=== PATIENT | male | born 1970 | race Hispanic/Latino ===

== ENCOUNTER 2018-08-21 17:36 | Inpatient (IN) ==
[2018-08-21] MEDS ORDERED: TYLENOL PO ONE (19:32)
[2018-08-21] MEDS ORDERED: ZOFRAN ODT PO ONE (19:32)
[2018-08-21 19:33] LABS: BASO# 0.06 X1000 (0.0-0.2); BASO% 0.4 % (0.0-0.8); EOS# 0.75 X1000 (0.0-0.7); EOS% 5.5 % (0.0-10.0); HEMOGLOBIN 11.2 g/dL (14.0-18.0); IMM GRAN# 0.08 X1000 (0.0-0.04); IMM GRAN% 0.6 % (0.0-0.5); LYMPH# 2.65 X1000 (1.2-3.4); LYMPH% 19.6 % (20.5-51.1); MCH 27.2 PG (27-31); MONO# 1.35 X1000 (0.11-0.59); NEUT# 8.66 X1000 (1.4-6.5); NEUT% 63.9 % (42.2-75.2); PLT 448 X1000 (130-400); RBC 4.12 XMIL (4.7-6.1); RDW 13.3 % (11.5-14.5); WBC 13.55 X1000 (4.8-10.8)
[2018-08-21 19:57] LABS: URINE SOURCE CLEAN CATCH
[2018-08-21 20:00] LABS: BILIRUBIN URINE NEGATIVE (NEGATIVE); BLOOD URINE SMALL (NEGATIVE); COLOR YELLOW; GLUCOSE URINE NEGATIVE (NEGATIVE); KETONE URINE NEGATIVE (NEGATIVE); LEUKOCYTES URINE NEGATIVE (NEGATIVE); NITRITE URINE NEGATIVE (NEGATIVE); PH URINE 5.5; PROTEIN URINE NEGATIVE (NEGATIVE); SP GRAVITY URINE 1.012; TURBIDITY URINE CLEAR (CLEAR); UROBILINOGEN URINE NORMAL (NORMAL)
[2018-08-21 20:01] LABS: UR EPITHELIAL CELLS <10 /HPF (<10); URINE BACTERIA NEGATIVE /HPF; URINE RBC <10 /HPF (<10); URINE WBC <10 /HPF (<10)
[2018-08-21 20:09] LABS: AGAP 11; ALB/GLOB RATIO 0.9; ALBUMIN 3.6 g/dL (3.5-5.0); ALKALINE PHOSPHATASE 94 U/L (32-122); BUN 11 mg/dL (8-22); CALCIUM 8.6 mg/dL (8.8-10.2); CHLORIDE 100 mmol/L (98-107); COSMO 274; CREATININE 0.8 mg/dL (0.7-1.2); ESTIMATED GFR > 60; GLUCOSE 139 mg/dL (70-104); GOT 19 U/L (10-34); GPT 14 U/L (10-44); POTASSIUM 3.6 mmol/L (3.5-5.1); SODIUM 136 mmol/L (136-145); TCO2 25 mmol/L (25-35); TOTAL BILIRUBIN 0.15 mg/dL (0.20-1.00); TOTAL PROTEIN 7.4 g/dL (6.3-8.3)
--- NOTE | 2018-08-21 21:05 | Diag Imaging Result Doc PS360 ---
EXAM: CT ABD/PELVIS W/IV CONT ONLY INDICATION: appendicitis, pyelo TECHNIQUE: This exam was performed using automated exposure control, adjustment of mA or kV according to patient size, and/or use of iterative reconstruction technique. COMPARISON: None. FINDINGS: There are numerous metastatic masses involving both lung bases. For reference, the largest visualized mass is in the lingula measuring up to 4.7 x 3.2 cm axially. A couple of the lower lobe masses are slightly cavitary. There are innumerable metastatic lesions throughout the liver including a large conglomerate mass in the left hepatic lobe that measures up to 14.0 x 8.5 cm axially. The gallbladder is unremarkable. The spleen, pancreas, and adrenal glands are unremarkable. There is irregular circumferential thickening involving the distal sigmoid colon that is highly consistent with neoplasm. This is assumed to be the primary mass. There is adjacent malignant mesenteric lymphadenopathy. Including a spiculated mesenteric mass adjacent to the affected segment of the colon measuring up to 3.6 x 3.5 cm axially. The primary colonic mass is significantly narrowing the lumen of the colon there is mild distention of the colon just proximal to the mass. There is inflammatory stranding in the pelvis adjacent to the mass. The urinary bladder is partially distended and is essentially unremarkable, otherwise. The colonic mass and the adjacent mesenteric implants in the pelvis are obstructing the distal right ureter. There is associated moderate right hydronephrosis. There are a few nonobstructing intrarenal stones on the left. The left kidney is unremarkable, otherwise. There are mild degenerative changes throughout the spine. At the superior endplate of the L4 vertebral body on the left, there is a focus of sclerosis. Although this could be degenerative sclerosis as it abuts the disc space, a metastatic lesion cannot be excluded. IMPRESSION: 1.Prominent circumferential mass with surrounding lymphadenopathy and adjacent mesenteric implants associated with the distal sigmoid colon. This is highly consistent with primary colon malignancy. 2.Obstruction of the distal right ureter by the colonic mass and adjacent mesenteric implants with associated moderate right hydronephrosis. 3.Extensive metastatic disease involving the liver and the lung bases. 4.Small focus of sclerosis involving the L4 vertebral body on the left. A bony metastatic lesion cannot be excluded. Electronically signed by Juan Carlos Meneses 08/21/2018 9:02 PM
[2018-08-21] MEDS: ZOFRAN IV PRN (23:17)
[2018-08-21] MEDS: MORPHINE IV PRN (23:17)
[2018-08-21] MEDS: NS 1,000 ML IV SCH (23:17)
--- NOTE | 2018-08-22 00:57 | HISTORY AND PHYSICAL ---
PRIMARY CARE PHYSICIAN: None. CHIEF COMPLAINT: Abdominal pain, constipation x3 months. HISTORY OF PRESENTING ILLNESS: A 47-year-old male without any significant past medical history presented to emergency department with a 3-month history of worsening constipation and abdominal pain. Patient states for the past week or so he was getting more pain and was not feeling well. The patient was evaluated the emergency department. He had imaging done which did show colon mass with metastasis. Due to his presenting symptoms, he will need admission for further management. At the time of my examination, patient denied any headache, fever, chills, chest pain, shortness of breath, hemoptysis, but complained of abdominal pain and constipation. PAST MEDICAL HISTORY: None. PAST SURGICAL HISTORY: None. ALLERGIES: Penicillin and ibuprofen. CURRENT MEDICATIONS: None. SOCIAL HISTORY: Twenty-five pack year history of smoking. Denies any history of alcohol or illicit drug use. FAMILY HISTORY: No history of coronary disease. REVIEW OF SYSTEMS: Fourteen point review of system as listed in HPI. Other systems negative. PHYSICAL EXAMINATION: GENERAL: Cooperative, friendly male. He is resting comfortably now. VITAL SIGNS: Temperature 98.0 degrees, pulse 96, respiration 18, blood pressure 133/87. HEENT: Atraumatic, normocephalic. Extraocular movements intact. PERRLA. NECK: Supple. CHEST: Clear to auscultation. CARDIOVASCULAR: Regular rate and rhythm. ABDOMEN: Soft, positive bowel sounds. EXTREMITIES: No edema. NEUROLOGIC: He is awake, alert, oriented x3. GENITOURINARY: No bladder distention. SKIN: Warm. LABORATORIES AND STUDIES: WBCs 13.55, hemoglobin 11.2, hematocrit 35.0, platelets 448. Sodium 136, potassium 3.6, chloride 100, CO2 is 25, BUN is 11, creatinine 0.8, glucose is 139. CT of the abdomen and pelvis shows prominent circumferential mass with surrounding lymphadenopathy and adjacent mesenteric implants highly consistent with primary colon malignancy. Also obstruction of the right distal ureter by colonic colon mass and adjacent mesenteric implants associated with moderate right hydronephrosis. ASSESSMENT: This is a 47-year-old male without any significant past medical history who presented to emergency department with a 3-month history of worsening constipation and abdominal pain. The patient was evaluated the emergency department. He had a CAT scan done which did show a colon mass with metastasis. Due to his presenting findings, he will need admission for further management. 1. Colon mass with metastasis. 2. Moderate right hydronephrosis. 3. Ongoing tobacco abuse. PLAN: 1. We will admit patient to medical floor with telemetry. 2. Continue with supportive treatment with pain control, antiemetics and gentle hydration. 3. We will consult Oncology and General Surgery. 4. We will consult Urology regarding right hydronephrosis. 5. I counseled patient on smoking cessation. 6. We will put patient on DVT prophylaxis with SCD. 7. Continue to follow, and reassess and make further recommendation based on patient's clinical course. cc: Tay Feliciano MD
--- NOTE | 2018-08-22 01:26 | PROVIDER DOCUMENTATION ---
This chart was entered by Doris Meneses Scribe, acting as scribe for Niki Briscoe MD. HPI-Abdominal Pain/GI Problem - General Chief Complaint: Constipation Stated Complaint: FEVER/STOMACH PAIN Time Seen by Provider: 08/21/18 19:05 Source: patient Allergies/Adverse Reactions: Patient Allergies Allergy/AdvReac Type Severity Reaction Status Date / Time No Known Allergies Allergy Verified 08/21/18 18:25 Home Medications: Home Medication List Medication Instructions Recorded Confirmed Last Taken Type NK [No Home Medications] 08/21/18 08/21/18 Unknown History - History of Present Illness-ABD Nature of Presenting Problems: 47 yom c/o lower back pain, lower abd pain, insomnia, no appetite, fever, nausea and vomiting since for 3 days. pt states he has been constipated on and off and has a hemorrhoid. pt states whenever he can use restroom blood comes first then BM. pt went to [place] to take care of some business, had blood work done there and decided to come back here to the dr. pt went to pcp yesterday and could not get an appt till thursday but pt did not want to wait so came to er. pt has been using preparation h, advil and aleve w/no relief. pt is a smoker, does not use alcohol or rec drugs. Abdominal Pain Onset Location: reports: other (starts in lower back) Pain Radiation: reports: RLQ Quality of Pain: reports: aching Severity in ED: reports: mild Onset/Duration: reports: 3 days ago Timing: reports: still present Review of Systems - Adult - REVIEW OF SYSTEMS - ADULT Constitutional: reports: see HPI, fever, fatique. denies: chills, night sweats Eyes: reports: no symptoms reported Ears, Nose, Mouth & Throat: reports: no symptoms reported Cardiovascular: reports: no symptoms reported Respiratory: reports: no symptoms reported Gastrointestinal: reports: see HPI, abdominal pain, constipation, nausea, poor appetite, rectal bleeding, vomiting. denies: hematemesis, diarrhea Genitourinary: reports: no symptoms reported Musculoskeletal: reports: no symptoms reported Integumentary: reports: no symptoms reported Neurological: reports: no symptoms reported Psychiatric: reports: no symptoms reported Endocrine: reports: no symptoms reported Hematologic/Lymphatic: reports: no symptoms reported Allergic/Immunologic: reports: no symptoms reported All Other Systems: Reviewed and Negative Past History - Adult - PAST MEDICAL HISTORY-ADULT Review of Records: reports: Old Records Reviewed, Nursing Assessment Review, Medications Reviewed, Social history reviewed & non-contributory. Major Childhood Illnesses: reports: denies history Cardiovascular: reports: denies history Respiratory: reports: denies history Gastrointestinal: reports: other (hemorrhoids, constipation) Obstetrical/Gynecological: reports: denies history Genitourinary: reports: denies history Musculoskeletal: reports: denies history Neurological: reports: denies history Endocrine/Immune: reports: denies history Other Conditions: reports: denies history - PRIOR SURGERIES/PROCEDURES Surgical/Procedure History: reports: none - IMMUNIZATION STATUS Childhood Immunizations: See Nurse Assessment Flu Vaccine: See Nurse Assessment - FAMILY HISTORY Family History: reviewed, not pertinent - SOCIAL HISTORY Smoking: cigarettes, less than 1 pack/day Substance Use: none/never Physical Exam-General - PHYSICAL EXAM-ADULT Initial Vital Signs Reviewed: Yes - CONSTITUTIONAL General Appearance: alert, mild distress, obese. negative: slow to respond, obtunded, combative - EYES Eyes: PERRL/EOMI - HEAD, EARS, NOSE, MOUTH & THROAT HENMT: normocephalic/atraumatic, moist mucous membranes, normal ENT inspection - NECK Neck: non-tender, full range of motion, supple, normal inspection - RESPIRATORY Respiratory: chest non-tender, lungs clear, normal breath sounds - CARDIOVASCULAR Cardiovascular: normal peripheral pulses, regular rate, rhythm - GASTROINTESTINAL (ABDOMEN) Abdominal Exam: normal bowel sounds, soft, tenderness (rlq tenderness). negative: non tender, abnormal bowel sounds, distended, guarding - GENITOURINARY Male Genitalia: deferred Rectal Exam: blood streaked stool, mass (large, protruding mass right above rectum.), tenderness. negative: normal exam, normal rectal tone, black stool - LYMPHATIC Lymphatic: no adenopathy - MUSCULOSKELETAL Back Exam: normal inspection, no vertebral tenderness, CVA tenderness. negative: no CVA tenderness, decreased range of motion, muscle spasm Extremity: normal range of motion, non-tender, normal inspection Peripheral Pulses: radial (R): 2+, radial (L): 2+ - SKIN Integumentary: normal color, normal turgor, warm/dry - NEUROLOGIC Neurologic: e d tech II-XII nml as tested, grossly normal, no motor/sensory deficits - PSYCHIATRIC Psych/Mental Status: normal mood/affect, normal thought content, normal thought process, oriented x 3 Progress - PLAN OF CARE/RESULTS Progress/Plan/Lab Results: Vital Signs - 8 hr 08/21/18 17:42 Temperature 98 F Pulse Rate 96 H Respiratory Rate 18 Blood Pressure 133/87 O2 Sat by Pulse Oximetry 98 Orders Category Date Time Status CT ABD/PELVIS W/IV CONT ONLY [CT] Stat Exams 08/21/18 19:31 Ordered CBC WITH DIFF [HEME] Stat Lab 08/21/18 19:15 Results CMP [COMPREHENSIVE METABOLIC PANEL] [CHEM] Stat Lab 08/21/18 19:15 Received OCCULT BLOOD SCREENING [STOOL] Stat Lab 08/21/18 19:28 Ordered URINALYSIS W/POSS RFLX CULT [URINALYSIS] Stat Lab 08/21/18 19:32 Uncollected Result Diagrams: 08/21/18 19:15 08/21/18 19:15 - CT/MRI 1 CT Study: Abdomen, Pelvis Impression: Abnormal (EXAM: CT ABD/PELVIS W/IV CONT ONLY INDICATION: appendicitis, pyelo TECHNIQUE: This exam was performed using automated exposure control, adjustment of mA or kV according to patient size, and/or use of iterative reconstruction technique. COMPARISON: None. FINDINGS: There are numerous metastatic masses involving both lung bases. For reference, the largest visualized mass is in the lingula measuring up to 4.7 x 3.2 cm axially. A couple of the lower lobe masses are slightly cavitary. There are innumerable metastatic lesions throughout the liver including a large conglomerate mass in the left hepatic lobe that measures up to 14.0 x 8.5 cm axially. The gallbladder is unremarkable. The spleen, pancreas, and adrenal glands are unremarkable. There is irregular circumferential thickening involving the distal sigmoid colon that is highly consistent with neoplasm. This is assumed to be the primary mass. There is adjacent malignant mesenteric lymphadenopathy. Including a spiculated mesenteric mass adjacent to the affected segment of the colon measuring up to 3.6 x 3.5 cm axially. The primary colonic mass is significantly narrowing the lumen of the colon there is mild distention of the colon just proximal to the mass. There is inflammatory stranding in the pelvis adjacent to the mass. The urinary bladder is partially distended and is essentially unremarkable, otherwise. The colonic mass and the adjacent mesenteric implants in the pelvis are obstructing the distal right ureter. There is associated moderate right hydronephrosis. There are a few nonobstructing intrarenal stones on the left. The left kidney is unremarkable, otherwise. There are mild degenerative changes throughout the spine. At the superior endplate of the L4 vertebral body on the left, there is a focus of sclerosis. Although this could be degenerative sclerosis as it abuts the disc space, a metastatic lesion cannot be excluded. IMPRESSION: 1.Prominent circumferential mass with surrounding lymphadenopathy and adjacent mesenteric implants associated with the distal sigmoid colon. This is highly consistent with primary colon malignancy. 2.Obstruction of the distal right ureter by the colonic mass and adjacent mesenteric implants with associated moderate right hydronephrosis. 3.Extensive metastatic disease involving the liver and the lung bases. 4.Small focus of sclerosis involving the L4 vertebral body on the left. A bony metastatic lesion cannot be excluded. Electronically signed by Juan Carlos Meneses 08/21/2018 9:02 PM) Comparison with other Films: no prior study Departure - Departure Date of Disposition Decision: 08/22/18 Time of Disposition Decision: 01:25 DIAGNOSIS: Metastasis from colon cancer Disposition: ADMITTED INPATIENT 09 Certified Medical Emergency: Emergent Condition: Stable - Critical Care Note This patient required my direct & personal management of CC.: No Attestation - Physician/ PARVIN Attestation Patient care was provided by Advanced Practice Provider:: No The physician spent face to face time with patient:: Yes Advanced Practice Provider documentation review:: Supervising physician onsite and consulted in the evaluation and care of this patient. The physician did have a face to face encounter with the patient. This chart was documented by the indicated scribe, (Doris Meneses Scribe) and accurately reflects the services I performed and decisions made by me, Niki Briscoe MD, as attested by the provider's signature.
[2018-08-22 07:12] LABS: BASO# 0.04 X1000 (0.0-0.2); BASO% 0.3 % (0.0-0.8); EOS# 0.73 X1000 (0.0-0.7); EOS% 5.6 % (0.0-10.0); HEMOGLOBIN 10.4 g/dL (14.0-18.0); IMM GRAN# 0.06 X1000 (0.0-0.04); IMM GRAN% 0.5 % (0.0-0.5); LYMPH# 3.24 X1000 (1.2-3.4); LYMPH% 24.9 % (20.5-51.1); MCH 26.9 PG (27-31); MCHC 31.5 g/dL (33-37); MCV 85.5 FL (81-99); MONO# 1.06 X1000 (0.11-0.59); MONO% 8.1 % (1.7-9.3); MPV 8.7 FL (7.4-10.4); NEUT% 60.6 % (42.2-75.2); PLT 440 X1000 (130-400); RBC 3.86 XMIL (4.7-6.1); RDW 13.2 % (11.5-14.5); WBC 13.03 X1000 (4.8-10.8)
[2018-08-22 07:51] LABS: AGAP 12; BUN 9 mg/dL (8-22); CALCIUM 8.1 mg/dL (8.8-10.2); CHLORIDE 102 mmol/L (98-107); COSMO 277; CREATININE 0.7 mg/dL (0.7-1.2); ESTIMATED GFR > 60; GLUCOSE 117 mg/dL (70-104); POTASSIUM 4.2 mmol/L (3.5-5.1); SODIUM 139 mmol/L (136-145); TCO2 25 mmol/L (25-35)
[2018-08-22] MEDS: NS 1,000 ML IV SCH ×2 (09:26→19:52)
[2018-08-22] MEDS: LACTULOSE PO SCH ×2 (12:37→19:52)
[2018-08-22] MEDS ORDERED: LOVENOX SUBQ ONE (13:04)
--- NOTE | 2018-08-22 13:27 | PROGRESS NOTE ---
DATE: 08/22/2018 INTERVAL HISTORY: Mr. Devries was admitted for abdominal pain and constipation, and was found to have a metastatic cancer involving bilateral lungs, liver and sigmoid colon. Since he has had a bowel movement small, currently he is denying any abdominal pain. I went to the bedside. I talked with the patient. The patient's young son is also bedside. The patient's lives in [place]. I explained to him about the bad nature of his cancer and I offered my empathy. I explained to him about the metastatic nature of the cancer as well as my willingness to help answer any questions currently. OBJECTIVE: Vitals: Temperature 98.2 degrees, pulse 76, respiratory rate 18, blood pressure 128/76, saturating 99% on room air. General: Does not appear in any acute distress. Oral cavity is moist. Lungs: Air entry bilaterally equal. No wheezes or crackles. Cardiovascular: S1, S2 normal. No murmur, rub or gallop. Abdomen: Obese, not tender. Extremities: No lower extremity edema. LABORATORIES: Suggestive of leukocytosis, normocytic anemia, thrombocytosis, normal electrolytes, elevated carcinoembryonic antigen. MICROBIOLOGY: Fecal occult blood test was positive. IMAGING: Abdomen and pelvis CT as mentioned above documented prominent mass with surrounding lymphadenopathy and adjacent mesenteric stranding associated with the distal sigmoid colon consistent with primary colon malignancy. There was also obstruction of distal ureter by colonic mass and adjacent mesenteric implants with associated moderate right hydronephrosis. Extensive metastatic disease involving liver and lung base. ASSESSMENT AND PLAN: 1. Suspected metastatic colon cancer involving sigmoid colon causing mild obstruction and constipation. I will appreciate Surgery recommendation about need for any surgical intervention. Also for possible sampling of his tumor. I will start him on lactulose to help him have bowel movements. Appreciate Oncology recommendation as he would likely require chemotherapy in the future very soon. 2. Right-sided hydronephrosis with colonic mass pressing on right ureter. Urology has been consulted. I will appreciate recommendation. His kidney function is currently normal, though. 3. Tobacco abuse. Patient was counseled about not using tobacco products anymore. He does not want nicotine patches. 4. Deep venous thrombosis prophylaxis. I will start him on enoxaparin to be held on the day of surgery. DISPOSITION: The patient remains inside the hospital for further management. Plan of care discussed with him. Surrogate decision maker is his who is in [place] right now. cc: Ayaz Arreola MD MTDD
--- NOTE | 2018-08-22 13:44 | GENERAL SURGERY CONSULTATION ---
DATE: 08/22/2018 CHIEF COMPLAINT: Is metastatic tumor. HISTORY: This 47-year-old gentleman who has been trying to immigrate to the [place] has noted an 8 to 9 month history of increasing constipation. Recently he has had some blood per rectum. He has had blood work in the past related to his immigration status but has never been told there has been any problem with it. He does have a past history of tuberculosis and has been treated for that in the [place]. No previous surgery. FAMILY HISTORY: His father from a heart attack. Was a heavy drinker. His mother had some kind of abdominal cancer he says. No cancer otherwise in his siblings. MEDICATIONS: He currently takes no medications. ALLERGIES: Penicillin and ibuprofen. SOCIAL HISTORY: He is a smoker. He denies alcohol use. As I said, he is in the process of immigrating to the [place]. REVIEW OF SYSTEMS: Pertinent for the constipation, hematochezia, 3-pound weight loss. Appetite satisfactory. No chest pain, shortness of breath. PHYSICAL EXAMINATION: Vital Signs: He is afebrile. Heart rate 76, blood pressure is 128/76, respiratory rate 18. No cervical adenopathy. Bilateral breath sounds. Heart: Regular rate and rhythm. Abdomen: Soft and minimally tender in the hypogastrium just to the right of the midline. He does have no peripheral edema. He has pedal pulses. He is awake, alert and oriented. He speaks Hebrew well. LABORATORY DATA: White count 13,000, hemoglobin 10.4, hematocrit 33. Chemistry is okay. Slightly elevated glucose. CT shows a mass in the sigmoid with possibly some mesenteric adenopathy and a partial obstruction his right ureter and large lesions of the liver, possibly small lesions in the base of the lungs as well. There may be a sclerotic lesion of the spine at L4. ASSESSMENT: Possible colon cancer with metastases which would be consistent with stage IV. He has a history of tuberculosis that has been treated. He has a family history of some gastrointestinal tract cancer. PLAN: The plan will be to check a CEA level. I did discuss with him the ultimate need for operation with either resection or diverting colostomy, one or the other. Since he is not obstructed is possible we might be able to prep his bowel, resect the segment and hook him back together to avoid a colostomy but I did discuss within the fact we could not cure him with resection. He will probably need a ureteral stent and an Oncology consultation as well. I will be following along as we prepare things for operative intervention. cc: Sha Doyle MD
--- NOTE | 2018-08-22 13:52 | CONSULTATION ---
DATE OF CONSULTATION: 08/22/2018 HISTORY OF PRESENT ILLNESS: This 47-year-old male has a 3 month history of constipation, abdominal pain and intermittent hematochezia. The patient states he had bad hemorrhoids. Evaluation with a CT of the abdomen and pelvis without IV contrast revealed a colon mass with metastatic disease to the mesentery, lungs and liver. This is causing right hydroureteronephrosis (moderate). It has not affected his renal function yet. Serum creatinine is 0.7. The patient denies any flank pains. He has no history of kidney stones. He denies problems with urinary tract infections. He has had no previous urologic surgery. The patient has just returned from [place] last week. PAST MEDICAL HISTORY: Negative. HOME MEDICATIONS: No current home medications. PAST SURGICAL HISTORY: Negative. SOCIAL HISTORY: He smokes a pack a day for the last 20 years. He denies alcohol use. ALLERGIES: He is allergic to penicillin and ibuprofen. He states that before all this started he was in good health. He denies any problems with heart disease, shortness of breath, strokes, seizures, diabetes or cardiac problems. PHYSICAL EXAMINATION: General: A mildly obese, age apparent, normally developed male, oriented in all ways and cooperative who speaks Syriac well. HEENT: Normal for age. Lungs: Clear. Cardiovascular: Regular rate and rhythm. Abdomen: Protuberant soft, nontender. No hepatosplenomegaly or masses. Normal bowel sounds. : Uncircumcised male. Foreskin retracts. Both testes are down and palpably normal. There are no inguinal hernias. Rectal Exam: Reveals a large protrusion coming out of the anal sphincter that is firm with palpation this it could be a very large thrombosed hemorrhoid. Extremities: No clubbing, cyanosis, or edema. Neuro: No focal deficits. LABORATORY EVALUATION: He has a white count of 13.03, hemoglobin 10.4, hematocrit of 33 and platelets are 440,000. Serum electrolytes are normal. BUN 9, creatinine 0.7. His urinalysis was negative. IMPRESSION: Patient with probable stage T4 colon cancer with moderate right hydroureteronephrosis. PLAN: Cystoscopic exam, right retrograde pyelogram, and place a right double-J stent if able under the same anesthesia that used for is exploratory laparotomy and colon surgery. The planned procedure, benefits versus risks, possible complications, including, but not limited to, bleeding, infection, not being able to place the stent, need for stent changes until the obstruction is relieved, possible need for further surgery was discussed. He seems to understand and desires to proceed. cc: Ean Mansfield MD
[2018-08-23 08:06] LABS: FERRITIN 184 ng/mL (30-400)
[2018-08-23] MEDS: LOVENOX SUBQ SCH (08:20)
[2018-08-23] MEDS: LACTULOSE PO SCH ×3 (08:20→23:04)
[2018-08-23] MEDS ORDERED: CITRATE OF MAGNESIA PO ONE (10:27)
--- NOTE | 2018-08-23 11:14 | GENERAL SURGERY PROGRESS NOTE ---
DATE: 08/23/2018 His CEA is high at 3000. He is tolerating liquids okay. The plan will be to proceed with exploratory laparotomy and possible resection of the sigmoid mass to prevent future obstruction versus doing a diverting colostomy. I have discussed these options. We will tentatively plan for Thursday. I will start prepping his bowel now. We will keep him on liquids and give him some magnesium citrate to help clean out his bowels as best we can. cc: Sha Doyle MD
[2018-08-23] MEDS ORDERED: MYLICON PO PRN (13:50)
--- NOTE | 2018-08-23 14:56 | PROGRESS NOTE ---
DATE: 08/23/2018 INTERVAL HISTORY: No acute events overnight. The patient was feeling fine. Denies any nausea, vomiting. He has had multiple small bowel movements. He was started on magnesium citrate. He is complaining of some gaseous discomfort and is asking for the medicine. He again discussed with us about the metastatic nature of the cancer. I also discussed with him about palliative care consult to help him with the goals of care discussion and he agreed currently. VITAL SIGNS: Currently, vitals valuation suggests he is afebrile with temperature of 98.2 degrees, pulse 77, respiratory rate 18, blood pressure 126/80, saturating 98% on room air. PHYSICAL EXAMINATION: General: Not in acute distress. Oral cavity is moist. Lungs: Air entry bilaterally equal. No wheeze, rhonchi, crackles. Cardiovascular: S1, S2 normal. No murmur, rub, or gallop. Abdomen: Soft, nontender. No lower extremity edema. He has active bowel sounds. He does appear morbidly obese. LABORATORY DATA: No CBC or BMP today. No . No new imaging, except iron studies which had adequate ferritin and slightly low serum iron. His carcinoembryonic antigen is elevated. ASSESSMENT AND PLAN: 1. Suspected metastatic colon cancer involving sigmoid colon causing mild obstruction and constipation. The patient likely to undergo laparotomy on August 24 with sigmoid resection with end-to-end anastomosis versus colostomy. General surgery and Oncology on board. 2. Right-sided hydronephrosis with colonic mass pressing on right ureter ureters. Urology on board and is planning a right sided double J-stent for relieving his hydronephrosis. 3. Tobacco abuse. He does not want nicotine patches. We had counseled him before. 4. Deep venous thrombosis prophylaxis. Enoxaparin to be held on the day of surgery. DISPOSITION: The patient remains inside the hospital as we await his abdominal surgery. I will also consult Palliative Care for goals of care discussion. Plan of care discussed with the patient. All of his questions have been answered. cc: Ayaz Arreola MD MTDD
--- NOTE | 2018-08-23 14:57 | HEMO/ONC CONSULTATION ---
DATE: 08/23/2018 REASON FOR CONSULTATION: Service consultation is for colon cancer. HISTORY OF PRESENT ILLNESS: Mr. Lunsford is a 47-year-old male without any significant medical history who presented to the emergency department at [facility] with complaints of history of worsening constipation abdominal pain. He was also complaining of back pain. He reports that he did have a scan to evaluate the back pain which did show the colon mass as well as well as bony metastatic lesion in his lumbar spine. Per the patient's report he has been asymptomatic and all the findings were incidental. He is now in the hospital for further evaluation and treatment. We have been consulted as the scan looks highly suspicious for colon cancer. PAST MEDICAL HISTORY: There is none. PAST SURGICAL HISTORY: None. SOCIAL HISTORY: Patient has a 25 pack-year history of smoking. He denies any alcohol or illicit drug use. FAMILY HISTORY: No history of coronary disease. However his mother does have a history of gastric cancer. REVIEW OF SYSTEMS: Twelve point review of systems completed negative except expressed in HPI. PHYSICAL EXAM: Vital Signs: Temperature 98.2 degrees, heart rate 77, respiration 18, blood pressure 126/83, O2 saturation 98% on room air. General: This is a male who is lying comfortably in his hospital bed. There is no one at bedside. He is in no acute distress. HEENT: Head normocephalic, atraumatic. Pupils equal, round, reactive. Mucosa appears to be normal. Gross auditory acuity intact. Cardiovascular: S1-S2 heard. No murmurs, gallops, rubs appreciated. Respiratory: Chest is clear, normal respiratory effort. Abdomen: Soft. Positive bowel sounds noted. No real tenderness noted. Musculoskeletal: No bony abnormalities. Extremities: No edema. Neurologic: Patient is alert and oriented x3 with no focal motor deficits noted. LABS AND STUDIES: White blood cells 13.03, hemoglobin 10.4, platelet count 440,000, CEA 3204, iron is low at 33. CT of abdomen, pelvis with IV contrast shows prominent colon mass with surrounding lymphedema and adjacent mesenteric implants associated with the distal sigmoid colon. This is highly consistent with a primary colon malignancy. Obstruction of the distal right ureter by the colonic mass and adjacent mesenteric implants with associated moderate right hydronephrosis. Extensive metastatic disease involving the liver and the lung bases. Specifically he has a left hepatic lobe lesion that measures 14 x 8.5 cm axial and then a small focus of sclerosis involving the L4 vertebral body on the left. Bony metastatic lesion cannot be excluded. ASSESSMENT AND PLAN: 1. Colon mass which is highly suspicious for colon primary. The patient is being evaluated by General Surgery. If they are going to do surgery will get a biopsy at the time of surgery. Otherwise we would consider doing a liver biopsy. Will follow up on general surgery's recommendations. 2. Right-sided hydronephrosis. Urology has been consulted. 3. Tobacco abuse. Smoking cessation has been encouraged. 4. Iron deficiency. This is likely related to his colon cancer. We will plan to replete iron as indicated. We want to thank you for consulting us on Mr. Lunsford. Will continue to follow along and adjust our treatment plan per his hospital course. Dictated by DEBORAH Salazar for Milana Goncalves MD cc: Milana Goncalves MD I have seen and examined the patient and the above note reflects my history, physical, assessment and plan. Milana AUGUSTIN
[2018-08-23] MEDS: MORPHINE IV PRN (22:46)
[2018-08-24 06:52] LABS: BASO# 0.03 X1000 (0.0-0.2); BASO% 0.2 % (0.0-0.8); EOS# 0.45 X1000 (0.0-0.7); EOS% 3.4 % (0.0-10.0); HEMATOCRIT 33.1 % (42.0-52.0); HEMOGLOBIN 10.4 g/dL (14.0-18.0); IMM GRAN# 0.06 X1000 (0.0-0.04); IMM GRAN% 0.5 % (0.0-0.5); LYMPH# 3.03 X1000 (1.2-3.4); MCH 26.8 PG (27-31); MCHC 31.4 g/dL (33-37); MCV 85.3 FL (81-99); MONO# 1.09 X1000 (0.11-0.59); MONO% 8.3 % (1.7-9.3); MPV 8.7 FL (7.4-10.4); NEUT# 8.54 X1000 (1.4-6.5); NEUT% 64.6 % (42.2-75.2); PLT 446 X1000 (130-400); RBC 3.88 XMIL (4.7-6.1); RDW 13.2 % (11.5-14.5)
[2018-08-24 07:12] LABS: AGAP 10; BUN 6 mg/dL (8-22); CALCIUM 8.3 mg/dL (8.8-10.2); CHLORIDE 98 mmol/L (98-107); COSMO 267; CREATININE 0.7 mg/dL (0.7-1.2); ESTIMATED GFR > 60; GLUCOSE 119 mg/dL (70-104); SODIUM 134 mmol/L (136-145); TCO2 26 mmol/L (25-35)
[2018-08-24] MEDS: LACTULOSE PO SCH ×3 (10:47→22:34)
[2018-08-24] MEDS: LOVENOX SUBQ SCH (10:47)
[2018-08-24] MEDS ORDERED: CITRATE OF MAGNESIA PO ONE (15:20)
--- NOTE | 2018-08-24 16:12 | GENERAL SURGERY PROGRESS NOTE ---
DATE: 08/24/2018 SUBJECTIVE: Mr. Lunsford says that he has had some bowel movement after the mag citrate. We will give him another bottle today. Will keep him on clear liquids. Give him some p.o. antibiotics this evening and plan for a sigmoid resection tomorrow. He will also have a ureteral stent placed by Dr. Mansfield. I discussed the procedure, the benefits and risks including infection, bleeding, the necessity for a colostomy. He understands all these things and agrees to proceed. cc: Sha Doyle MD
[2018-08-24] MEDS: ERYTHROMYCIN BASE PO SCH ×3 (17:01→22:22)
[2018-08-24] MEDS: NEOMYCIN PO SCH ×3 (17:01→22:22)
--- NOTE | 2018-08-24 17:43 | PROGRESS NOTE ---
DATE: 08/24/2018 SUBJECTIVE: Overnight, no acute events. Patient is denying any chest pain, shortness of breath, nausea, and vomiting. He has been having multiple bowel movements. I discussed with him about his understanding about the colon cancer, metastatic nature, and life expectancy, and he understands it. I have also consulted Palliative Care. VITAL SIGNS: Currently, temperature is 98.9 degrees, pulse 70, respiratory rate 19, blood pressure 138/89, saturating 100% on room air. PHYSICAL EXAMINATION: General: Does not appear in any acute distress. Oral Cavity: Moist. Lungs: Air entry bilaterally equal. No wheeze, rhonchi, or crackles. Cardiovascular: S1, S2 normal. No murmur or gallop. Abdomen: Obese, nontender. Extremity: No lower extremity edema. Neurologic: He is alert and oriented x3. LABS: His labs today suggest persistent leukocytosis, normocytic anemia, no thrombocytosis, acceptable range of electrolytes and kidney function. No new microbiological data. ASSESSMENT AND PLAN: 1. Suspected metastatic colon cancer involving sigmoid colon, causing mild obstruction and constipation. Continue bowel regimen with lactulose and magnesium citrate. The patient to undergo laparotomy on 08/24/2018, with possible sigmoid resection with end-to-end anastomosis versus colostomy. General Surgery and Oncology on board. 2. Right-sided hydronephrosis with colonic mass pressing on the right ureter. Urology on board and likely planning right-sided double-J stent for relieving his hydronephrosis. 3. Tobacco abuse. The patient was counseled about quitting smoking. He refuses to take any tobacco patch. 4. Deep venous thrombosis prophylaxis with Lovenox. 5. Disposition. The patient remains inside the hospital as we monitor him before he goes to surgery. Likely surgery planned for tomorrow. Plan of care discussed with the patient. All of his questions have been answered. The patient's is going to come around by [facility]. cc: Ayaz Arreola MD
[2018-08-24] MEDS: ZOFRAN IV PRN (22:22)
--- NOTE | 2018-08-25 10:49 | PROGRESS NOTE ---
DATE: 08/25/2018 SUBJECTIVE: Overnight no acute events. He is feeling fine. He is a little anxious about going to the surgery. I sat down and explained to aixa, his about his nature of the course, surgery, postsurgical course and answered all of the questions extensively. Currently, patient denies any nausea, vomiting, abdominal pain. He has had multiple bowel movements overnight. He is also worried about his hemorrhoids and I talked to him about that and he would have to make sure that we address his constipation. OBJECTIVE: Vitals today: Temperature 98.3 degrees, pulse 76, respiratory rate off 19 per minute, blood pressure 133/83. He is saturating 98% on room air. PHYSICAL EXAMINATION: General: Does not appear in any acute distress. Mildly anxious. Oral cavity is moist. Lungs: Air entry bilaterally equal no wheeze, rhonchi, crackles. Cardiovascular: S1, S2 normal. No murmur or gallop. Abdomen: Obese, nontender. No hepatosplenomegaly detected. Rectal: He does have non bleeding external hemorrhoids. Extremity: Edema. Neurologic: He is alert oriented x3. LABS: Suggestive of persistent leukocytosis, normocytic anemia, thrombocytosis. Normal level of electrolytes mostly with normal kidney function. No new microbiological data. No new imaging data. ASSESSMENT AND PLAN: 1. Suspected metastatic colon cancer involving sigmoid colon with metastasis to liver, bilateral lungs causing mild obstruction and constipation on presentation. The patient has had multiple bowel movements on lactulose and magnesium citrate. The patient to undergo laparotomy on 08/25/2018 with possible sigmoid resection, and end-to-end anastomosis versus colostomy. General surgery, oncology on board. The patient might also get concomitant port placement. 2. Right-sided hydronephrosis with colonic mass pressing on the right ureter. Urology on board and likely planning a right-sided double-J stent for relieving hydronephrosis. 3. Tobacco abuse. The patient has not been smoking since this hospitalization and does not want any nicotine patch. 4. Deep venous thrombosis prophylaxis Lovenox. DISPOSITION: 1. Patient remains inside the hospital. He will need a postoperative course monitoring inside the hospital. Plan of care is discussed with the patient and patient's who just flew from [place] today. All of their questions have been answered. 2. After post surgery course, if that is uncomplicated, the patient would eventually go home and follow up with Dr. Goncalves to initiate chemotherapy potentially. Plan of care is discussed with the patient's family. cc: Ayaz Arreola MD
[2018-08-25] MEDS ORDERED: NEOSPORIN G.U. IRRIGANT ONE (11:32)
[2018-08-25] MEDS ORDERED: MARCAINE 0.25% ONE (11:33)
[2018-08-25] MEDS ORDERED: EXPAREL 1.3% ONE (11:33)
[2018-08-25] MEDS ORDERED: XYLOCAINE-MPF 2% ONE (11:36)
[2018-08-25] MEDS ORDERED: ZOFRAN ONE (11:36)
[2018-08-25] MEDS ORDERED: ROBINUL ONE (11:36)
[2018-08-25] MEDS ORDERED: FENTANYL ONE (11:36)
[2018-08-25] MEDS ORDERED: DIPRIVAN 1% ONE (11:36)
[2018-08-25] MEDS ORDERED: DECADRON ONE (11:37)
[2018-08-25] MEDS ORDERED: QUELICIN (DOSE) ONE (11:38)
[2018-08-25] MEDS ORDERED: INVANZ 1 GM/NS 1 GM/50 ML IVPB IV ONE (11:40)
[2018-08-25] MEDS ORDERED: VERSED ONE (11:56)
[2018-08-25] MEDS: LACTULOSE PO SCH (12:55)
[2018-08-25] MEDS ORDERED: ZEMURON ONE ×2 (13:14)
--- NOTE | 2018-08-25 13:37 | Diag Imaging Result Doc PS360 ---
EXAM: RETROGRADES 2 OR 3 FILMS INDICATION: RANDEE. RETROGRADES, RT. STENT PLACEMENT TECHNIQUE: COMPARISON: None. FINDINGS: Nine spot fluoroscopic images were provided, which were performed during bilateral retrograde pyeloureterogram and right ureteral stent placement by Dr. Ean Mansfield. There is questionable mild distal ureteral narrowing focally on image four. The right renal collecting system is distended as compared to the left. Left ureter and left renal collecting system are unremarkable. On the final image, there is a newly placed right ureteral stent in the expected position. IMPRESSION: As above. Please correlate with live fluoroscopic imaging. Electronically signed by Juan Carlos Meneses 08/25/2018 1:34 PM
[2018-08-25 13:39] LABS: URINE SOURCE CATH
[2018-08-25 13:44] LABS: BILIRUBIN URINE NEGATIVE (NEGATIVE); BLOOD URINE NEGATIVE (NEGATIVE); COLOR STRAW; GLUCOSE URINE NEGATIVE (NEGATIVE); KETONE URINE NEGATIVE (NEGATIVE); LEUKOCYTES URINE NEGATIVE (NEGATIVE); NITRITE URINE NEGATIVE (NEGATIVE); PH URINE 7.5; PROTEIN URINE NEGATIVE (NEGATIVE); TURBIDITY URINE CLEAR (CLEAR); UR EPITHELIAL CELLS <10 /HPF (<10); URINE BACTERIA NEGATIVE /HPF; URINE RBC <10 /HPF (<10); URINE WBC <10 /HPF (<10); UROBILINOGEN URINE NORMAL (NORMAL)
[2018-08-25] MEDS ORDERED: OFIRMEV 1000 MG/ISOTONIC SOLN 1,000 MG/100 ML BOTTLE ONE (13:59)
[2018-08-25] MEDS ORDERED: DILAUDID ONE (15:12)
[2018-08-25] MEDS ORDERED: NS 1,000 ML ONE (16:02)
--- NOTE | 2018-08-25 16:03 | OPERATIVE NOTE ---
PROCEDURE DATE: 08/25/2018 PROCEDURE: Open sigmoid colon resection with primary anastomosis; diverting ileostomy. SURGEON: Sha Doyle MD. GUT CARRIER: ANGELICA Broussard. PREOPERATIVE DIAGNOSIS: Stage IV cancer of the colon. POSTOPERATIVE DIAGNOSIS: Stage IV cancer of the colon. INDICATIONS: This is a 47-year-old gentleman who presented with a near obstructing sigmoid mass with large liver metastases, possible lung metastases, and a partial obstruction of the right ureter. Dr. Mansfield had already placed a stent in his right ureter. He now presents for the sigmoid resection. DESCRIPTION OF PROCEDURE: The patient was in [facility]. The abdomen was prepped and draped in a sterile fashion. We made a midline incision from just above the umbilicus down to the pubis. We went through the subcutaneous tissue and into the abdominal cavity to the extent of the skin incision. A brief exploration revealed the hard mass in the sigmoid at the pelvic brim hard mesentery. There were hard masses noted within the liver. We placed a Bookwalter retractor and placed the patient in Trendelenburg. We then scored the peritoneum distally along the sides, and proximally we found a spot proximal to the sigmoid cancer, and incised the perineum. We were able to put our finger through the mesentery. We divided the bowel with the NOHELIA blue cartridge 80 mm long. We then divided the mesentery from the bowel down toward the root of the mesentery. As we got toward the root, it became quite hard. We used the LigaSure and the electrocautery to go through the mesentery from proximal to distal. We did some of it bluntly as well. One bleeding point required a 3-0 Prolene [id number] stitch to achieve hemostasis from the root of the mesentery. We continued dissecting distally, another bleeding point required the same. We carefully stayed close to the bowel in order to avoid getting into the ureters. We finally reached the point that we could divide the colon distal to the near obstructive point. We handed off the specimen. I then was challenged with getting a posterior margin. We went through the root of the mesentery posteriorly and distally in order to try to get a posterior margin to allow us to sew to the posterior wall. I took some of the distal margin from the posterior wall and sent it for permanent section. After we had resected it back on the posterior margin, I then placed 2-0 silks in the posterior layer seromuscular stitches. After those were tied, we then resected the staple line from the proximal colon and then used a 3-0 Polysorb running stitch posteriorly, and then changed to a Jerri stitch anteriorly. The final layer was then 2-0 silks in a Lembert fashion. This completed the 2 layer closure in the distal sigmoid region. Because however of the potential for nonhealing, I placed a drain within the pelvis bringing it out the left lower quadrant. We placed it posterior to the bowel. I then decided to do a diverting ileostomy to protect this anastomosis. We changed gloves at this point. We flattened the patient. We irrigated and changed and rid ourselves of the contaminated instruments. I then excised the hole from the right lower quadrant below what I thought was the belt line. Then, I went through the subcutaneous fat into the abdominal cavity. I then placed our retractors in the subcutaneous fat, and made a hole in the anterior rectus sheath. I extended proximally, distally or cephalad caudad and some transversely in order to make a hole that would comfortably allow a loop of ilium to come through it. We identified the cecum, and identified the loop of the ileum just proximal to the cecum and delivered it through the abdominal wall with the [place]. There was felt to be adequate space. We did not constrict the ileum in a significant away. We did pass a bridge underneath the loop. I then proceeded to close the peritoneum with 2-0 chromic. We closed the fascia with running #2 Prolene and irrigated subcutaneous tissue. We closed the skin with mal. The drain was secured to the skin with a 2-0 silk. We then covered the midline wound closure. We then obtained a flange to go around the site of the right lower quadrant. Stoma. After placing it, we then opened the bowel longitudinally with electrocautery. We then placed the overlying bag with the bridge inside. Sterile dressing was applied on the midline wound. He tolerated procedure satisfactory, and was sent to recovery room in satisfactory condition. cc: Sha Doyle MD
[2018-08-25 16:23] LABS: HEMATOCRIT 34.4 % (42.0-52.0); HEMOGLOBIN 10.9 g/dL (14.0-18.0)
[2018-08-25] MEDS ORDERED: ZOFRAN IV PRN (16:48)
[2018-08-25] MEDS: NS 1,000 ML IV SCH (16:50)
[2018-08-25 16:52] LABS: AGAP 10; BUN 5 mg/dL (8-22); CALCIUM 8.2 mg/dL (8.8-10.2); CHLORIDE 104 mmol/L (98-107); COSMO 276; CREATININE 0.8 mg/dL (0.7-1.2); ESTIMATED GFR > 60; GLUCOSE 153 mg/dL (70-104); POTASSIUM 4.7 mmol/L (3.5-5.1); SODIUM 138 mmol/L (136-145); TCO2 24 mmol/L (25-35)
[2018-08-25] MEDS: NEOMYCIN PO SCH ×2 (16:52→16:53)
[2018-08-25] MEDS: ERYTHROMYCIN BASE PO SCH (16:52)
[2018-08-25] MEDS: DILAUDID IV PRN (17:05)
[2018-08-25] MEDS: OFIRMEV 1000 MG/ISOTONIC SOLN 1,000 MG/100 ML BOTTLE IV SCH (20:25)
[2018-08-26] MEDS: DILAUDID IV PRN ×3 (00:29→21:32)
[2018-08-26] MEDS: NS 1,000 ML IV SCH ×3 (02:49→21:59)
[2018-08-26] MEDS: OFIRMEV 1000 MG/ISOTONIC SOLN 1,000 MG/100 ML BOTTLE IV SCH ×4 (02:49→21:31)
[2018-08-26 07:32] LABS: BASO# 0.02 X1000 (0.0-0.2); BASO% 0.1 % (0.0-0.8); EOS# 0.09 X1000 (0.0-0.7); EOS% 0.5 % (0.0-10.0); HEMATOCRIT 32.9 % (42.0-52.0); HEMOGLOBIN 10.2 g/dL (14.0-18.0); IMM GRAN# 0.07 X1000 (0.0-0.04); IMM GRAN% 0.4 % (0.0-0.5); LYMPH# 2.04 X1000 (1.2-3.4); LYMPH% 10.3 % (20.5-51.1); MCH 26.6 PG (27-31); MCV 85.7 FL (81-99); MONO# 1.42 X1000 (0.11-0.59); MONO% 7.2 % (1.7-9.3); MPV 8.9 FL (7.4-10.4); NEUT# 16.18 X1000 (1.4-6.5); NEUT% 81.5 % (42.2-75.2); PLT 519 X1000 (130-400); RBC 3.84 XMIL (4.7-6.1); RDW 13.3 % (11.5-14.5); WBC 19.82 X1000 (4.8-10.8)
[2018-08-26 07:51] LABS: AGAP 11; BUN 9 mg/dL (8-22); CALCIUM 8.2 mg/dL (8.8-10.2); CHLORIDE 103 mmol/L (98-107); COSMO 279; CREATININE 0.8 mg/dL (0.7-1.2); ESTIMATED GFR > 60; GLUCOSE 115 mg/dL (70-104); POTASSIUM 4.7 mmol/L (3.5-5.1); SODIUM 140 mmol/L (136-145); TCO2 26 mmol/L (25-35)
--- NOTE | 2018-08-26 08:06 | OPERATIVE NOTE ---
PROCEDURE DATE: 08/25/2018 SURGEON: Ean Mansfield MD. PREOPERATIVE DIAGNOSIS: Stage T4 colon cancer with obstruction of the right mid ureter. POSTOPERATIVE DIAGNOSIS: Stage T4 colon cancer with obstruction of the right mid ureter. PROCEDURES PERFORMED: 1. Cystoscopic exam, bilateral retrograde ureteropyelograms. 2. Placement of right double-J stent. ANESTHESIA: General endotracheal. FINDINGS: Cystoscopic exam: Urethra-greater than 21-Ivorian without stricture. Prostate-mild hypertrophy of the lateral lobes, elevated bladder neck, length approximately 4 cm. Bladder- normal ureteral orifices bilaterally. No diverticula. No papillary lesions. Mild trabeculations. The left retrograde ureteropyelogram was normal without filling defect. Right retrograde ureteropyelogram has no filling defects. The ureter is dilated to the mid ureter where it narrows in the area of the known mass. There are no filling defects in the system. Rectal exam reveals significant hemorrhoids. The prostate is about 40 g, smooth, and symmetric. INDICATION FOR PROCEDURE: This 47-year-old male has a 3 month history of bowel problems. Evaluation revealed a sigmoid colon mass with metastasis to the mesentery, liver, and lungs. Also noted was right hydronephrosis. DESCRIPTION OF PROCEDURE: After informed consent was obtained from the patient and him receiving IV antibiotics, he was taken the main OR and placed in the supine position. General endotracheal anesthesia was achieved. He was then placed in the low lithotomy position, and prepped and draped in the usual sterile fashion for a cystoscopic exam. A 21-Ivorian sheath cystoscope was passed through the patient's urethra, prostate, and into the bladder with findings as noted above. An 8- Ivorian cone-tipped catheter was passed through the cystoscope and engaged the left ureteral orifice. Contrast was injected. Right side was accomplished similarly. The 8-Ivorian cone-tipped catheter was removed. A 0.035 ZIPwire was passed through the cystoscope, engaged the right ureteral orifice, advanced up into the kidney. A 6-Ivorian, 26 cm double-J stent was passed over the ZIPwire and was able to be pushed up into the kidney. The renal end was verified by fluoroscopic exam, bladder end directly visualized. Stent removal string was removed. The cystoscope was removed. A 16-Ivorian Dover catheter was passed through the patient's urethra, prostate, and into the bladder without difficulty. Then 10 mL of sterile water were placed in the Dover's balloon. A rectal exam was then performed. He tolerated the procedure well. Estimated blood loss was 0. He was turned over to Dr. Doyle in good condition for his colon surgery. cc: Ean Mansfield MD
--- NOTE | 2018-08-26 15:19 | GENERAL SURGERY PROGRESS NOTE ---
DATE: 08/26/2018 SUBJECTIVE: Postop day 1 he is doing generally well. His pain relief is adequate. He is afebrile, heart rate 56, blood pressure 120/60. He has no pulmonary dysfunction. He is already putting some air into his ileostomy bag. He is making satisfactory urine output. His drain has put out 50 mL. Laboratory dated today shows a white count of 19,800, hemoglobin 10.2, hematocrit 32. His chemistry is fine. PLAN: The plan will be to give him clear liquids in the morning. He can get out of bed. cc: Sha Doyle MD
--- NOTE | 2018-08-26 17:48 | PROGRESS NOTE ---
DATE: 08/26/2018 SUBJECTIVE: He looks well. No major complaints. Pain seems controlled. OBJECTIVE: Vital Signs: Blood pressure is 128/69, heart rate of 59, respiratory rate of 16, temperature 97.9. Cardiovascular: Regular rate and rhythm. Pulmonary: Bilateral breath sounds. Clear to auscultation. GI: Was soft, nontender, nondistended. He has an ostomy right lower quadrant. Bowel sounds are present. LABORATORY DATA: White count 19, hemoglobin and hematocrit 10 and 32, platelets 519. Basic was normal. PROBLEM LIST: 1. Metastatic colon cancer of the sigmoid with mets to the liver who is status post ileostomy, I believe. He had an open sigmoid resection, diverting ileostomy in the setting of stage IV cancer and he also had compression of his ureter with placement of a double-J stent per Dr. Mansfield. Diet has been advanced. We will continue postop care surgery. Urology is following. 2. Hydronephrosis. Again, status post double-J stents. Urine output adequate. There is no hematuria. 3. Tobacco use. DISPOSITION: Really just waiting for him to recover from the surgery and then home. He is usually pretty functional. I cannot tell if he has gotten out of bed yet and I know he is afraid to. So that will be per Dr. Doyle's recommendations, but I am assuming as soon as tomorrow he can start to get up, but appreciate input. cc: Jeffrey Noel MD
[2018-08-26] MEDS: LOVENOX SUBQ SCH ×2 (21:32→21:51)
[2018-08-27] MEDS: NS 1,000 ML IV SCH ×3 (00:27→11:48)
[2018-08-27] MEDS: OFIRMEV 1000 MG/ISOTONIC SOLN 1,000 MG/100 ML BOTTLE IV SCH ×4 (03:11→20:25)
[2018-08-27 07:16] LABS: BASO# 0.04 X1000 (0.0-0.2); BASO% 0.3 % (0.0-0.8); EOS# 0.45 X1000 (0.0-0.7); EOS% 2.9 % (0.0-10.0); HEMATOCRIT 30.7 % (42.0-52.0); HEMOGLOBIN 9.6 g/dL (14.0-18.0); IMM GRAN# 0.06 X1000 (0.0-0.04); IMM GRAN% 0.4 % (0.0-0.5); LYMPH# 3.12 X1000 (1.2-3.4); LYMPH% 19.8 % (20.5-51.1); MCH 26.9 PG (27-31); MCHC 31.3 g/dL (33-37); MONO# 1.31 X1000 (0.11-0.59); MONO% 8.3 % (1.7-9.3); MPV 8.9 FL (7.4-10.4); NEUT# 10.79 X1000 (1.4-6.5); NEUT% 68.3 % (42.2-75.2); PLT 476 X1000 (130-400); RBC 3.57 XMIL (4.7-6.1); RDW 13.5 % (11.5-14.5); WBC 15.77 X1000 (4.8-10.8)
[2018-08-27 07:39] LABS: AGAP 9; BUN 10 mg/dL (8-22); CALCIUM 8.1 mg/dL (8.8-10.2); CHLORIDE 101 mmol/L (98-107); COSMO 272; CREATININE 0.8 mg/dL (0.7-1.2); ESTIMATED GFR > 60; GLUCOSE 120 mg/dL (70-104); POTASSIUM 4.2 mmol/L (3.5-5.1); SODIUM 136 mmol/L (136-145); TCO2 26 mmol/L (25-35)
[2018-08-27] MEDS ORDERED: SOLU-MEDROL IV ONE (11:16)
--- NOTE | 2018-08-27 11:16 | GENERAL SURGERY PROGRESS NOTE ---
DATE: 08/27/2018 SUBJECTIVE: He is postop day 2 after a sigmoid resection. He is doing generally well. OBJECTIVE: Vital signs: He is afebrile, heart rate 72, blood pressure 112/72. Abdomen: Rather quiet. He has had about 30 mL out of his drain. Intake 1700, output 1445. [place] [address], hemoglobin 9.6. Chemistry is okay. PLAN: The plan will be to give him clear liquids today. I will cut his IV rate down and take his Dover out. [facility] will cover in my absence. cc: Sha Doyle MD
[2018-08-27] MEDS: BENADRYL PO PRN ×2 (11:47→22:03)
--- NOTE | 2018-08-27 18:08 | PROGRESS NOTE ---
DATE: 08/27/2018 SUBJECTIVE: He is in better spirits today. He seems to be getting up and about. No major complaints. OBJECTIVE DATA: Vital Signs: Blood pressure 119/73, heart rate 67, respiratory rate 14, temperature 98.4 degrees. Cardiovascular: Regular rate and rhythm. Pulmonary: Bilateral breath sounds. Clear to auscultation. Gastrointestinal: Soft, nontender, nondistended. Bowel sounds are positive. LABORATORY DATA: White count is down to 15, hemoglobin and hematocrit 9 and 30, platelets 476,000. Basic was normal. PROBLEM LIST: 1. Metastatic colon cancer with obstruction and liver metastases, status post diverting ileostomy. He is doing well, postop day #2, I believe. Surgery has advanced his diet. He still has a drain in place. Care really per their recommendations. 2. Hydronephrosis associated with external compression associated with his cancer. He is status post stent placement and is doing fine. History of tobacco abuse. We have counseled him on this. 3. Disposition: Waiting for resolution of bowel function. He seems to be doing okay. His diet has been advanced and we are going to continue to follow. cc: Jeffrey Noel MD [facility]
[2018-08-27] MEDS: LOVENOX SUBQ SCH (20:25)
[2018-08-28] MEDS: NS 1,000 ML IV SCH ×2 (04:15→20:24)
[2018-08-28] MEDS: OFIRMEV 1000 MG/ISOTONIC SOLN 1,000 MG/100 ML BOTTLE IV SCH ×4 (04:15→20:24)
[2018-08-28] MEDS: ULTRAM PO PRN (07:36)
[2018-08-28 07:37] LABS: BASO# 0.03 X1000 (0.0-0.2); BASO% 0.1 % (0.0-0.8); EOS# 0.14 X1000 (0.0-0.7); EOS% 0.7 % (0.0-10.0); HEMATOCRIT 32.4 % (42.0-52.0); HEMOGLOBIN 10.2 g/dL (14.0-18.0); IMM GRAN# 0.09 X1000 (0.0-0.04); IMM GRAN% 0.4 % (0.0-0.5); LYMPH# 3.57 X1000 (1.2-3.4); LYMPH% 16.6 % (20.5-51.1); MCHC 31.5 g/dL (33-37); MCV 85.7 FL (81-99); MONO# 2.11 X1000 (0.11-0.59); MONO% 9.8 % (1.7-9.3); MPV 8.8 FL (7.4-10.4); NEUT# 15.53 X1000 (1.4-6.5); NEUT% 72.4 % (42.2-75.2); PLT 530 X1000 (130-400); RBC 3.78 XMIL (4.7-6.1); RDW 13.4 % (11.5-14.5); WBC 21.47 X1000 (4.8-10.8)
[2018-08-28 08:04] LABS: AGAP 12; BUN 8 mg/dL (8-22); CALCIUM 8.7 mg/dL (8.8-10.2); CHLORIDE 105 mmol/L (98-107); COSMO 286; CREATININE 0.8 mg/dL (0.7-1.2); ESTIMATED GFR > 60; GLUCOSE 108 mg/dL (70-104); MAGNESIUM 2.1 mg/dL (1.5-2.7); POTASSIUM 4.7 mmol/L (3.5-5.1); SODIUM 144 mmol/L (136-145); TCO2 27 mmol/L (25-35)
[2018-08-28 08:10] LABS: LYMPHS 16 % (21-51); MONO 2 % (1-9); SEGS 82 % (42-75)
[2018-08-28] MEDS: BENADRYL PO PRN (08:25)
--- NOTE | 2018-08-28 14:23 | GENERAL SURGERY PROGRESS NOTE ---
DATE: 08/28/2018 SUBJECTIVE: The patient is feeling better today. No significant abdominal pain, nausea or vomiting. He is tolerating his liquid diet and having liquid output into his ileostomy. OBJECTIVE: Vital Signs: He is afebrile. Vital signs are stable. General: He is awake, alert, oriented x3. No acute distress. GI: Soft, nondistended. Minimally tender. He does have bowel sounds. Incisional dressing is clean and dry. The stoma is patent. PLAN: We will advance his diet as tolerated. cc: Andrei Lee MD
--- NOTE | 2018-08-28 16:24 | PROGRESS NOTE ---
DATE: 08/28/2018 SUBJECTIVE: He is doing well subjectively. No major issues. OBJECTIVE: Vital Signs: BP 124/74, heart rate 66, respiratory rate of 21, temperature 97.8 degrees. Cardiovascular: Regular rate and rhythm. Pulmonary: Bilateral breath sounds. Clear to auscultation. GI: Soft, nontender, nondistended. Bowel sounds are positive. LABS: White count is up to 21, H and H 10 and 32, platelets 530. Remainder of laboratory data unremarkable. PROBLEM LIST: 1. Metastatic colon cancer with liver metastases, status post ileostomy after resection, doing well. Surgery is advancing diet. 2. Hydronephrosis. That seems to be resolved after stent placement. 3. Leukocytosis. I am not really sure why that has progressed so much, really do not have any information there. I am going to get blood cultures, urine and follow clinically. He looks very stable, so it is odd, but we will make sure we are not missing anything from that standpoint. cc: Jeffrey Noel MD
[2018-08-28 18:28] LABS: URINE SOURCE CLEAN CATCH
[2018-08-28 18:38] LABS: BILIRUBIN URINE NEGATIVE (NEGATIVE); BLOOD URINE MODERATE (NEGATIVE); COLOR STRAW; GLUCOSE URINE NEGATIVE (NEGATIVE); KETONE URINE NEGATIVE (NEGATIVE); LEUKOCYTES URINE NEGATIVE (NEGATIVE); NITRITE URINE NEGATIVE (NEGATIVE); PH URINE 6.5; PROTEIN URINE TRACE mg/dL (NEGATIVE); TURBIDITY URINE CLEAR (CLEAR); UROBILINOGEN URINE NORMAL (NORMAL)
[2018-08-28 18:39] LABS: UR EPITHELIAL CELLS <10 /HPF (<10); URINE BACTERIA NEGATIVE /HPF; URINE RBC 20-40 /HPF (<10); URINE WBC <10 /HPF (<10)
[2018-08-28] MEDS: LOVENOX SUBQ SCH (20:24)
[2018-08-29] MEDS: ULTRAM PO PRN ×3 (05:40→21:39)
[2018-08-29] MEDS: OFIRMEV 1000 MG/ISOTONIC SOLN 1,000 MG/100 ML BOTTLE IV SCH ×4 (06:01→21:38)
[2018-08-29 07:11] LABS: BASO# 0.03 X1000 (0.0-0.2); BASO% 0.2 % (0.0-0.8); EOS# 0.56 X1000 (0.0-0.7); EOS% 3.3 % (0.0-10.0); HEMATOCRIT 32.8 % (42.0-52.0); HEMOGLOBIN 10.4 g/dL (14.0-18.0); IMM GRAN# 0.06 X1000 (0.0-0.04); IMM GRAN% 0.4 % (0.0-0.5); LYMPH# 2.85 X1000 (1.2-3.4); LYMPH% 16.8 % (20.5-51.1); MCHC 31.7 g/dL (33-37); MCV 85.2 FL (81-99); MONO# 1.36 X1000 (0.11-0.59); MPV 8.8 FL (7.4-10.4); NEUT# 12.11 X1000 (1.4-6.5); NEUT% 71.3 % (42.2-75.2); PLT 540 X1000 (130-400); RBC 3.85 XMIL (4.7-6.1); RDW 13.3 % (11.5-14.5); WBC 16.97 X1000 (4.8-10.8)
[2018-08-29 07:44] LABS: AGAP 10; BUN 9 mg/dL (8-22); CALCIUM 8.4 mg/dL (8.8-10.2); CHLORIDE 102 mmol/L (98-107); COSMO 275; CREATININE 0.7 mg/dL (0.7-1.2); ESTIMATED GFR > 60; GLUCOSE 103 mg/dL (70-104); POTASSIUM 4.2 mmol/L (3.5-5.1); SODIUM 138 mmol/L (136-145); TCO2 26 mmol/L (25-35)
--- NOTE | 2018-08-29 08:30 | Diag Imaging Result Doc PS360 ---
EXAM: CHEST-2 VIEWS HISTORY: hypoxia TECHNIQUE: Chest three views COMPARISON: None. FINDINGS: The lungs are well expanded. The heart is not enlarged. The vessels are not distended. There are nodules/masses in the lower left lung. No pleural effusions. IMPRESSION: Known lower lung masses. Electronically signed by Rogerio Singh 08/29/2018 8:28 AM
--- NOTE | 2018-08-29 11:08 | GENERAL SURGERY PROGRESS NOTE ---
DATE: 08/29/2018 SUBJECTIVE: He is without complaints. He is walking, voiding, tolerating a soft diet, and having ileostomy output. OBJECTIVE: He is afebrile. Vital signs are stable. General: He is awake, alert, and oriented x4. No acute distress. GI: Soft. Minimally tender. Incisional dressings are clean and dry. JEAN drain with bloody fluid. Ileostomy is pink and patent. Laboratory: White blood cell count 16.9, hemoglobin 10, hematocrit 32. Electrolytes reviewed and unremarkable. ASSESSMENT AND PLAN: A 47-year-old male status post partial colectomy with ileostomy for stage IV colon cancer. He is tolerating his diet. He is having good bowel function. We will leave the drain in for removal per Dr. Doyle's discretion. He is awaiting further ileostomy care training by the wound care nurse tomorrow. cc: Andrei Lee MD
[2018-08-29] MEDS: NS 1,000 ML IV SCH (13:32)
--- NOTE | 2018-08-29 18:39 | PROGRESS NOTE ---
DATE: 08/29/2018 SUBJECTIVE: The patient has no focal complaints. He looks well, better and better every day. He is tolerating p.o. without difficulty. OBJECTIVE: Vital Signs: Blood pressure 125/68, heart rate 76, respiratory rate 18, temperature 98.6 degrees. Cardiovascular: Regular rate and rhythm. Pulmonary: Bilateral breath sounds. Clear to auscultation. GI: Soft, nontender, nondistended. Bowel sounds are positive. LABORATORY DATA: White count is down to 16, hemoglobin and hematocrit 10 and 32. ASSESSMENT AND PLAN: 1. Briefly, this is a metastatic colon cancer patient with liver metastases, status post ileostomy, which is doing well. Diet is being advanced. I think surgically he is ready to go. He still has a drain in and he still needs education on the ostomy. The wound care nurse will be here tomorrow. 2. Hydronephrosis without renal failure. He is status post stent placement per Dr. Mansfield. Urine output has been adequate. 3. Leukocytosis, unclear etiology, although recent steroids which were given for an urticarial rash are likely contributing to his most recent bump. He seems to be improving and all the other parameters are negative. DISPOSITION: Anticipate discharge tomorrow after his education. cc: Jeffrey Noel MD
[2018-08-29] MEDS: LOVENOX SUBQ SCH (21:39)
[2018-08-30] MEDS: LOVENOX SUBQ SCH ×2 (04:52→21:44)
[2018-08-30] MEDS: NS 1,000 ML IV SCH (06:29)
[2018-08-30] MEDS: OFIRMEV 1000 MG/ISOTONIC SOLN 1,000 MG/100 ML BOTTLE IV SCH ×4 (06:29→21:44)
[2018-08-30] MEDS: ULTRAM PO PRN ×2 (09:53→21:50)
[2018-08-30] MEDS ORDERED: NS 1,000 ML IV SCH (11:04)
--- NOTE | 2018-08-30 11:37 | Diag Imaging Result Doc PS360 ---
EXAM: KUB ABDOMEN INDICATION: ureteral stent TECHNIQUE: 2 views COMPARISON: None. FINDINGS: There is a newly placed right ureteral stent. It is in the expected position. There are midline skin mal indicating a recent laparotomy. There are several moderately gas-distended loops of small bowel in the abdomen that probably represent a postsurgical ileus. IMPRESSION: 1.Right ureteral stent in the expected position. 2.Moderate gaseous distention of loops of small bowel that probably represents postsurgical ileus. Electronically signed by Juan Carlos Meneses 08/30/2018 11:34 AM
--- NOTE | 2018-08-30 11:57 | GENERAL SURGERY PROGRESS NOTE ---
DATE: 08/30/2018 SUBJECTIVE: He is now 5 days after his low anterior sigmoid resection and diverting ileostomy. He is doing generally well. He is eating now. His ileostomy is working. OBJECTIVE: He is afebrile, stable hemodynamics. His wound was fine. His drainage of serosanguineous. PLAN: Today I will remove his drain. I will get a KUB on him to look at his bowel gas pattern. We will also have the colostomy nurse educate him regarding his stoma care. I think he will be ready for discharge on the morning of the . He will return to the office in 1 week. cc: Sha Doyle MD
--- NOTE | 2018-08-30 14:35 | PROGRESS NOTE ---
DATE: 08/30/2018 SUBJECTIVE: No acute events overnight. He is feeling fine. OBJECTIVE: Vital signs: Temperature 98.7 degrees, pulse 78, respiratory rate 16, blood pressure 121/75, oxygen saturation 100% on room air. HEENT: Head normocephalic. No trauma. PERRLA. Neck: Supple. No JVD. No masses. Central trachea. Chest: Clear to auscultation. No wheezing. No rales. Abdomen: Soft, mildly distended. Positive bowel sounds. He has an infraumbilical wound that looks clean, dry, and intact with some mal. Also, he has an ileostomy on the right side of the abdomen. Extremities: No edema. No clubbing. No cyanosis. Neurological: The patient is alert and oriented x3. No focal deficits. LABORATORY: WBC 16.9, hemoglobin 10.4, hematocrit 32.8, platelets 540,000. Sodium 138, potassium 4.2, chloride 102, bicarbonate 26, BUN 9, creatinine 0.7, glucose 103, calcium 8.4. ASSESSMENT AND PLAN: 1. Metastatic colon cancer with metastasis to the liver, status post open sigmoid colon resection with primary anastomosis, diverting ileostomy. He seems to be doing well. Surgery Department following this patient closely. Hopefully I will be able to discharge this patient tomorrow. We are getting a KUB to look at his bowel-gas pattern and go from there. 2. Hydronephrosis without renal failure. He is status post stent placement per Dr. Mansfield. Urine output has been adequate. 3. Leukocytosis, unclear etiology. Likely reactive but apparently he also used a little bit of steroids before for a rash that he had before. 4. Disposition. Likely this patient will be discharged tomorrow. We will get a KUB in the morning. He will be re-evaluated by Surgery Department. We will monitor. cc: Krunal Acosta MD
--- NOTE | 2018-08-30 16:48 | HEMO/ONC PROGRESS NOTE ---
DATE: 08/30/2018 SUBJECTIVE: Mr. Lunsford is sitting up in his hospital bed with his at bedside. He is in no acute distress. OBJECTIVE: Temperature 98.7 degrees, heart rate 78, respirations 16, blood pressure 121/75, O2 saturation 100% on room air. DIAGNOSTIC STUDIES: No new labs for 08/30/2018. He did have an abdominal x-ray which showed a right ureteral stent in expected position. Moderate gaseous distention of loops of small bowel that probably represents a postsurgical ileus. PHYSICAL EXAMINATION: Cardiovascular: Regular rhythm, normal rate. Respiratory: Normal respiratory effort. Gastrointestinal: Abdomen is distended. He has an ostomy in place in right lower quadrant, which appears intact. He has a midline incision which shows no signs of infection. Extremities: No edema. ASSESSMENT AND PLAN: 1. Likely metastatic colon cancer with metastases to the liver. He is now status post open sigmoid colon resection with diverting ileal ileostomy. Final pathology is not currently in the system. We are going to go and talk to the pathology department directly about the final pathology. Plan is for the patient to follow up with us once he is released from the hospital. We will complete any restaging scans that need to be done. We will set the patient up to receive a port, and then we will talk to him further about palliative chemotherapy. 2. Post surgical ileus. Per General Surgery. 3. Hydronephrosis without renal failure. He is status post stent placement with Dr. Mansfield. Continue per Urology. 4. Leukocytosis. Likely reactive. White blood cells better yesterday than over the last couple days previous. 5. Disposition. From our standpoint, the patient can be discharged to home whenever okay with the primary team and other consultants. Again, he will follow up with us as an outpatient for further treatment planning. Dictated by DEBORAH Salazar for Milana Goncalves MD cc: Milana Goncalves MD I have seen and examined the patient and the above note reflects my history, physical, assessment and plan. Milana AUGUSTIN
[2018-08-31] MEDS: OFIRMEV 1000 MG/ISOTONIC SOLN 1,000 MG/100 ML BOTTLE IV SCH ×2 (03:14→10:26)
[2018-08-31] MEDS: ULTRAM PO PRN (06:55)
[2018-08-31 07:33] LABS: BASO# 0.03 X1000 (0.0-0.2); BASO% 0.2 % (0.0-0.8); EOS# 0.56 X1000 (0.0-0.7); EOS% 3.3 % (0.0-10.0); HEMATOCRIT 31.9 % (42.0-52.0); HEMOGLOBIN 10.4 g/dL (14.0-18.0); IMM GRAN# 0.09 X1000 (0.0-0.04); IMM GRAN% 0.5 % (0.0-0.5); LYMPH# 2.66 X1000 (1.2-3.4); LYMPH% 15.8 % (20.5-51.1); MCH 27.2 PG (27-31); MCHC 32.6 g/dL (33-37); MCV 83.5 FL (81-99); MONO# 1.37 X1000 (0.11-0.59); MONO% 8.2 % (1.7-9.3); MPV 8.7 FL (7.4-10.4); NEUT# 12.08 X1000 (1.4-6.5); PLT 610 X1000 (130-400); RBC 3.82 XMIL (4.7-6.1); RDW 13.5 % (11.5-14.5); WBC 16.79 X1000 (4.8-10.8)
[2018-08-31 07:43] LABS: AGAP 11; ALB/GLOB RATIO 0.9; ALBUMIN 3.3 g/dL (3.5-5.0); ALKALINE PHOSPHATASE 117 U/L (32-122); BUN 8 mg/dL (8-22); CALCIUM 8.7 mg/dL (8.8-10.2); CHLORIDE 99 mmol/L (98-107); COSMO 271; CREATININE 0.7 mg/dL (0.7-1.2); ESTIMATED GFR > 60; GLUCOSE 112 mg/dL (70-104); GOT 18 U/L (10-34); GPT 11 U/L (10-44); POTASSIUM 4.1 mmol/L (3.5-5.1); SODIUM 136 mmol/L (136-145); TCO2 26 mmol/L (25-35); TOTAL BILIRUBIN 0.31 mg/dL (0.20-1.00)
[2018-08-31 11:49] VITALS: BP 124/76
--- NOTE | 2018-08-31 15:04 | GENERAL SURGERY PROGRESS NOTE ---
DATE: 08/31/2018 He is afebrile today. His hemodynamics are good. His staple line is fine. He is putting output in his ileostomy. He is tolerating solid food. His pathology is still pending. I discussed his wound care and activity. He will return to see me in the office in 1 week. Prescription for Ultram has been written. cc: Sha Doyle MD
--- NOTE | 2018-08-31 22:54 | DISCHARGE SUMMARY ---
ADMISSION DATE: 08/21/2018 DISCHARGE DATE: 08/31/2018 DIAGNOSES: 1. Metastatic colon cancer status post sigmoid colon resection with diverting ileostomy with metastasis to the liver. 2. Hydronephrosis without renal failure secondary to ureteral obstruction per colon mass. 3. Leukocytosis resolved. 4. Tobacco use and abuse. CONSULT: 1. Dr. Ean Mansfield, urology. 2. Dr. Sha Doyle, general surgery. 3. Dr. Milana Goncalves, oncology . DIAGNOSTICS: 1. 08/21/2018 CT of the abdomen and pelvis revealed prominent circumferential mass with surrounding lymphadenopathy and adjacent mesenteric implants associated with the distal sigmoid colon highly consistent with primary colon malignancy. Obstruction of the right distal ureter by the colonic mass associated with moderate right hydronephrosis, extensive metastatic disease involving the liver and the lung bases, small focus of sclerosis involving L4 vertebral body on the left, a bony metastatic lesion cannot be excluded. 2. Retrograde pyelogram [*] 08/29/2018 chest x-ray revealed known lower lung masses. 3. 08/30/2018 abdominal x-rays revealed right ureteral stent in expected position with moderate gaseous distention of loops of small bowel which could represent a postsurgical ileus. 4. Microbiology. Blood cultures x2 revealed no growth after 48 hours. 5. Stool for occult blood was positive. This was 08/21/2018. HOSPITAL COURSE: Mr. Devries presented to the emergency room complaining of 3 months of abdominal pain and constipation. He found metastatic colon cancer with metastasis to the lungs and liver. He subsequently underwent a sigmoid colon resection with diverting ileostomy. He was also found to have a right distal ureteral obstruction due to the colonic mass with associated right hydronephrosis. Ureteral stent was placed per Dr. Mansfield and hydronephrosis has improved at the time of his colon resection, he has tolerated well. His diet has been advanced to a GI soft which he has tolerated with no abdominal pain, nausea, vomiting. Thankfully he had no kidney injury with creatinine staying 0.7 to 0.8. Has had leukocytosis this is with an unclear etiology. All cultures have been negative and he has been afebrile. It is felt that this was secondary to steroid use secondary to a rash. DISCHARGE PHYSICAL EXAMINATION: Cardiovascular: Regular rate and rhythm. S1 and S2 appreciated. He has no lower extremity edema with peripheral pulses palpable x4 extremities. Pulmonary: Breath sounds are clear. No increased work of breathing noted. Chest rises and falls symmetric with respirations . Gastrointestinal: Abdomen is soft, is slightly tender along his incision with incision noted to be intact and clear. Ileostomy is noted with stoma pink. Skin is warm and dry. Neurologic: He is alert and oriented. DISCHARGE FOLLOWUP: 1. Dr. Mliana Goncalves as she has instructed. 2. Dr. Sha Doyle in [address] Mansfield as he was instructed for stent exchange. He needs to call Dr. Mansfield' office in the morning to schedule a followup appointment. DISCHARGE MEDICATIONS: 1. Zofran 4 mg p.o. at bedtime p.r.n. 2. Ultram 50 mg p.o. q.6 hours p.r.n. He is being discharged home in stable condition with family members. He has been instructed to call to be seen sooner or return to the ER for any syncope, dizziness, chest pain, palpitations, shortness of breath, any hemoptysis, temperature greater than 101, any black or bloody vomitus or stools, any abdominal distention, decrease in his fecal output from his ileostomy or for any questions or concerns that he may have. TIME SPENT: Greater than 30 minutes. Dictated by GEOVANNA Negrete for Krunal Acosta MD This chart was documented by, GEOVANNA Negrete and accurately reflects the services performed, treatment plan and medical decisions as attested by the providers signature Krunal Acosta MD. cc: GEOVANNA Negrete MD
== END 2018-08-31 16:55 | disposition home or self-care (01) | DRG 330 ==
LOC: ED 17:36 → 3N 22:36 → SUATTDRO 22:36 → MERGE 22:36 → 3N 22:52
PROVIDERS: ATTEND Internal Medicine
CPT/HCPCS: 71020; 71046; 74000; 74018; 74177; 74420; 80048; 80053; 81001; 82270; 82378; 82607; 82728; 82746; 83540; 83735; 85014; 85018; 85025; 86850; 86900; 86901; 87040; 88309; 99285; A9270; C9290; J0131; J0330; J1100; J1170; J1335; J1650; J2250; J2270; J2405; J2930; J3010; J7030; Q9966; Q9967; S0020